=== PATIENT | female | born 1960 | race African-American/Black ===

== ENCOUNTER 2019-06-10 00:06 | Emergency (ER) | payer MEDICAID, OTHER ==
[~2019-06-10 00:06] MED LIST: ACET-3161 PO; ALLO300T2 PO; ASPI-1497 PO; DOCU-150 PO; FLUO10CA25 PO; KETO5DRO80 EACHEYE; METF-414 PO; OMEP20CA14 PO; SIMV-43 PO; TRAM150C25 MT
[2019-06-10] MEDS ORDERED: SODIUM CHLORIDE 0.9% 1,000 ML IV ONE (01:59)
[2019-06-10] MEDS ORDERED: ONDANSETRON HCL 4MG/2ML INJ IV STA (01:59)
[2019-06-10] MEDS ORDERED: IBUPROFEN 600MG TABLET PO STA (01:59)
[2019-06-10 02:54] LABS: CHLORIDE 105 mEq/L (98-107)
[2019-06-10 03:08] LABS: BASOPHILS % 0.4 % (0.0-2.0); EOSINOPHILS % 2.3 % (0.0-5.0); HEMATOCRIT. 36.8 % (36.0-48.0); HEMOGLOBIN. 12.1 g/dL (12.0-16.0); LYMPHOCYTES % 35.6 % (20.0-50.0); MEAN CORPUSCULAR HEMOGLOBIN 30.5 pg (28.0-32.0); MEAN CORPUSCULAR VOLUME 93.2 fL (81.0-99.0); MEAN PLATELET VOLUME 9.3 fl (7.4-10.4); MONOCYTES % 6.2 % (2.0-8.0); NEUTROPHILS % 55.5 % (40.0-76.0); PLATELET 250 x1000/uL (130-400); RED BLOOD CELL COUNT 3.95 mill/uL (4.2-5.4); RED CELL DISTRIBUTION WIDTH 14.1 % (11.6-14.6)
[2019-06-10 03:30] VITALS: BP 102/59
== END 2019-06-10 03:39 | disposition home or self-care (01) ==
LOC: ER 00:06
DX: R07.9 Chest pain, unspecified (principal); R11.10 Vomiting, unspecified; E11.9 Type 2 diabetes mellitus without complications; E78.00 Pure hypercholesterolemia, unspecified; Z77.098 Contact with and (suspected) exposure to other hazardous, chiefly nonmedicinal, chemicals; Z98.51 Tubal ligation status; Z79.82 Long term (current) use of aspirin; Z79.899 Other long term (current) drug therapy; Z79.84 Long term (current) use of oral hypoglycemic drugs
CPT/HCPCS: 36415; 71045; 80053; 83880; 84484; 85025; 93005; 96361; 96374; 99284; J2405; J7030

== ENCOUNTER 2021-12-28 17:44 | Emergency (ER) | payer MEDICAID, OTHER ==
[~2021-12-28] VITALS: Ht 160 cm; Wt 78.0 kg
[2021-12-28] MEDS ORDERED: DIPHENHYDRAMINE 50MG CAPSULE PO ONE (19:45)
[2021-12-28] MEDS ORDERED: IBUPROFEN 600MG TABLET PO ONE (19:45)
[2021-12-28 19:58] VITALS: BP 102/81
[2021-12-28] MEDS ORDERED: HYDROCORTISONE 1% OINT 28.35GM TOP SCH (21:00)
== END 2021-12-28 19:59 | disposition home or self-care (01) ==
LOC: ER 17:44
DX: S40.861A Insect bite (nonvenomous) of right upper arm, initial encounter (principal); S80.861A Insect bite (nonvenomous), right lower leg, initial encounter; W57.XXXA Bitten or stung by nonvenomous insect and other nonvenomous arthropods, initial encounter; Y93.89 Activity, other specified; Y92.89 Other specified places as the place of occurrence of the external cause; Y99.8 Other external cause status; F32.9 Major depressive disorder, single episode, unspecified; E11.9 Type 2 diabetes mellitus without complications; E78.00 Pure hypercholesterolemia, unspecified; Z98.51 Tubal ligation status; Z79.899 Other long term (current) drug therapy
CPT/HCPCS: 99284; Q0163